=== PATIENT | female | born 1995 | race African-American/Black ===

== ENCOUNTER 2021-03-15 02:25 | Emergency (ER) | payer SELFPAY ==
[2021-03-15] MEDS ORDERED: Ketorolac Tromethamine 30 MG/ML VIAL ONE (03:16)
== END 2021-03-15 03:22 | disposition home or self-care (01) ==
LOC: CSHERS 02:25
DX: F41.9 Anxiety disorder, unspecified (principal); R07.89 Other chest pain
CPT/HCPCS: 71045; 93005; 96372; J1885

== ENCOUNTER 2021-07-02 14:07 | Emergency (ER) | payer SELFPAY ==
[2021-07-02] MEDS ORDERED: predniSONE 20 MG TAB ONE (14:35)
== END 2021-07-02 16:09 | disposition home or self-care (01) ==
LOC: CSHERS 14:07
DX: J45.909 Unspecified asthma, uncomplicated (principal); G43.909 Migraine, unspecified, not intractable, without status migrainosus
CPT/HCPCS: 71045; J7512; J7620

== ENCOUNTER 2021-08-07 13:25 | Emergency (ER) | payer SELFPAY ==
[2021-08-08 16:45] LABS: SARS-CoV-2 PCR by NAA DETECTED (NotDetected)
== END 2021-08-07 16:18 | disposition home or self-care (01) ==
LOC: CSHERS 13:25
DX: U07.1 COVID-19 (principal); G43.909 Migraine, unspecified, not intractable, without status migrainosus
CPT/HCPCS: 71046; 87804; U0003; U0005

== ENCOUNTER 2021-08-12 00:29 | Emergency (ER) | payer SELFPAY ==
[2021-08-12] MEDS ORDERED: Ondansetron ODT 4 MG TAB ONE (02:35)
== END 2021-08-12 03:10 | disposition home or self-care (01) ==
LOC: CSHERS 00:29
DX: U07.1 COVID-19 (principal); R07.89 Other chest pain; J45.909 Unspecified asthma, uncomplicated; G43.909 Migraine, unspecified, not intractable, without status migrainosus
CPT/HCPCS: 71045; Q0162

== ENCOUNTER 2022-03-31 17:13 | Emergency (ER) | payer SELFPAY, OTHER | END 2022-03-31 17:56 | disposition home or self-care (01) | LOC: CSHERS 17:13 | DX: J02.9 Acute pharyngitis, unspecified (principal) | CPT/HCPCS: 99284 ==

== ENCOUNTER 2022-04-08 01:56 | Emergency (ER) | payer OTHER, SELFPAY ==
[2022-04-08] MEDS ORDERED: Oxymetazoline HCl 0.05% ( 15 ML ) ONE (03:02)
== END 2022-04-08 04:32 | disposition home or self-care (01) ==
LOC: CSHERS 01:56
DX: J20.9 Acute bronchitis, unspecified (principal); R09.81 Nasal congestion
CPT/HCPCS: 71045; 94640; J7620

== ENCOUNTER 2022-04-12 13:27 | Emergency (ER) | payer SELFPAY ==
[2022-04-12 14:18] LABS: Bilirubin Neg (Negative); Blood, Urine 10 (Negative); Clarity Slightly Cloudy (Clear); Glucose, Urine (Dipstick) Normal (Negative); Ketone, Urine Negative (Negative); Leukocyte 500 (Negative); Nitrite Negative (Negative); Protein, Urine (Dipstick) 15 mg/dl (Neg-Trace); Urobilinogen Normal mg/dL (Less than 2)
[2022-04-12 14:19] LABS: Pregnancy Test - Urine (BHCG) Negative (Negative); Pregu Control Background? CLEAR/WHITE (CLR/WHITE); Pregu Control Bar Appear? YES (CONTROL BAR)
[2022-04-12 14:20] LABS: #Eosinphils 0.2 10x3/uL (0.0-0.5); #Monocytes 0.7 10x3/uL (0.0-1.1); #Neutrophils 5.2 10x3/uL (1.5-8.4); %Basophils 0.3 % (0.0-2.0); %Eosinophils 2.3 % (0.0-6.0); %Lymphocytes 33.5 % (18.0-47.0); %Monocytes 7.2 % (0.0-10.0); %Neutrophils 56.4 % (40.0-75.0); Hemoglobin 9.3 g/dL (12.0-15.5); Mean Corpuscular HGB CONC 30.9 g/dL (32.0-36.0); Mean Corpuscular Hemoglobin 22.6 pg (27.0-33.0); Mean Corpuscular Volume 73.1 fl (81.6-98.3); Mean Platelet Volume 10.4 fl (7.4-10.4); Platelet Count 384 10x3/uL (150-450); Red Blood Cell (RBC) Count 4.12 10x6/uL (3.90-5.03); White Blood Cell (WBC) Count 9.2 10x3/uL (3.5-10.5)
[2022-04-12 14:34] LABS: Bacteria/HPF 2+ HPF (None Seen); RBC/HPF 0-3 HPF (0-3)
[2022-04-12 14:45] LABS: ALT (SGPT) 26 U/L (8-55); AST (SGOT) 23 U/L (5-34); Albumin 3.8 g/dL (3.5-5.0); Alkaline Phosphatase 84 U/L (40-110); Anion Gap 14 mmol/L (10-20); BUN (Urea Nitrogen) 10 mg/dL (7.0-18.7); Bilirubin, Total 0.2 mg/dL (0.2-1.2); Calc. Creatinine Clearance 0 mL/min (70-130); Calcium 8.8 mg/dL (7.8-10.44); Carbon Dioxide 21 mmol/L (22-29); Chloride 106 mmol/L (98-107); Estimated GFR 82; Globulin 4.4 g/dL (2.4-3.5); Glucose 100 mg/dL (70-105); Lipase 66 U/L (8-78); Potassium 3.9 mmol/L (3.5-5.1); Protein, Total 8.2 g/dL (6.0-8.3); Sodium 137 mmol/L (136-145)
== END 2022-04-12 15:25 | disposition home or self-care (01) ==
LOC: CSHERS 13:27
DX: N39.0 Urinary tract infection, site not specified (principal)
CPT/HCPCS: 36415; 80053; 81003; 81015; 81025; 83690; 85025; 87086; 99284

== ENCOUNTER 2022-06-23 08:01 | Emergency (ER) | payer SELFPAY ==
[2022-06-23] MEDS ORDERED: Ketorolac Tromethamine 30 MG/ML VIAL ONE (08:59)
[2022-06-23 09:20] LABS: SARS-CoV-2 NAA Rapid Test DETECTED (NotDetected)
== END 2022-06-23 09:17 | disposition home or self-care (01) ==
LOC: CSHERS 08:01
DX: U07.1 COVID-19 (principal)
CPT/HCPCS: 96372; 99283; J1885

== ENCOUNTER 2022-06-30 22:34 | Emergency (ER) | payer SELFPAY | END 2022-06-30 23:33 | disposition home or self-care (01) | LOC: CSHERS 22:34 | DX: U07.1 COVID-19 (principal); J20.9 Acute bronchitis, unspecified | CPT/HCPCS: 99282 ==

== ENCOUNTER 2022-07-23 22:35 | Emergency (ER) | payer SELFPAY ==
[2022-07-23] MEDS ORDERED: Acetaminophen 500 MG TAB ONE (23:19)
[2022-07-23] MEDS ORDERED: Ibuprofen 200 MG TAB ONE (23:20)
== END 2022-07-23 23:28 | disposition home or self-care (01) ==
LOC: CSHERS 22:35
DX: B34.9 Viral infection, unspecified (principal); J45.909 Unspecified asthma, uncomplicated; G43.909 Migraine, unspecified, not intractable, without status migrainosus
CPT/HCPCS: 99283

== ENCOUNTER 2022-07-28 05:27 | Emergency (ER) | payer SELFPAY ==
[2022-07-28 06:05] LABS: #Eosinphils 0.1 10x3/uL (0.0-0.5); #Monocytes 0.6 10x3/uL (0.0-1.1); %Basophils 0.3 % (0.0-2.0); %Eosinophils 1.3 % (0.0-6.0); %Lymphocytes 32.3 % (18.0-47.0); %Monocytes 5.8 % (0.0-10.0); Hemoglobin 10.1 g/dL (12.0-15.5); Mean Corpuscular HGB CONC 32.5 g/dL (32.0-36.0); Mean Corpuscular Hemoglobin 24.2 pg (27.0-33.0); Mean Corpuscular Volume 74.4 fl (81.6-98.3); Mean Platelet Volume 10.1 fl (7.4-10.4); Platelet Count 384 10x3/uL (150-450); RBC Distribution Width 18.4 % (11.5-14.5); Red Blood Cell (RBC) Count 4.18 10x6/uL (3.90-5.03); White Blood Cell (WBC) Count 9.9 10x3/uL (3.5-10.5)
[2022-07-28 06:22] LABS: ALT (SGPT) 18 U/L (8-55); AST (SGOT) 17 U/L (5-34); Albumin 3.9 g/dL (3.5-5.0); Alkaline Phosphatase 87 U/L (40-110); Anion Gap 15 mmol/L (10-20); BUN (Urea Nitrogen) 12 mg/dL (7.0-18.7); Bilirubin, Total 0.2 mg/dL (0.2-1.2); Calc. Creatinine Clearance 0 mL/min (70-130); Calcium 9.3 mg/dL (7.8-10.44); Carbon Dioxide 20 mmol/L (22-29); Chloride 107 mmol/L (98-107); Estimated GFR 95; Globulin 4.6 g/dL (2.4-3.5); Glucose 98 mg/dL (70-105); Potassium 3.7 mmol/L (3.5-5.1); Protein, Total 8.5 g/dL (6.0-8.3); Sodium 138 mmol/L (136-145)
[2022-07-28 06:32] LABS: BHCG - Serum Negative (NEGATIVE); Pregs Control Background? CLEAR/WHITE (CLR/WHITE); Pregs Control Bar Appear? YES (CONTROL BAR)
== END 2022-07-28 06:50 | disposition home or self-care (01) ==
LOC: CSHERS 05:27
DX: R42 Dizziness and giddiness (principal); I10 Essential (primary) hypertension; N93.9 Abnormal uterine and vaginal bleeding, unspecified; D64.9 Anemia, unspecified
CPT/HCPCS: 80053; 84703; 85025; 93005

== ENCOUNTER 2022-11-09 07:12 | Emergency (ER) | payer BC, SELFPAY ==
[2022-11-09 07:59] LABS: Bilirubin Neg (Negative); Blood, Urine 10 (Negative); Clarity Cloudy (Clear); Glucose, Urine (Dipstick) Normal (Negative); Ketone, Urine Negative (Negative); Leukocyte 500 (Negative); Nitrite Negative (Negative); Protein, Urine (Dipstick) 15 mg/dl (Neg-Trace); Urobilinogen Normal mg/dL (Less than 2)
[2022-11-09 08:01] LABS: Pregnancy Test - Urine (BHCG) Negative (Negative); Pregu Control Background? CLEAR/WHITE (CLR/WHITE); Pregu Control Bar Appear? YES (CONTROL BAR)
[2022-11-09 08:06] LABS: #Basophils 0.1 10x3/uL (0.0-0.2); #Eosinphils 0.2 10x3/uL (0.0-0.5); #Monocytes 0.4 10x3/uL (0.0-1.1); %Basophils 0.6 % (0.0-2.0); %Eosinophils 2.5 % (0.0-6.0); %Lymphocytes 29.8 % (18.0-47.0); %Monocytes 5.3 % (0.0-10.0); %Neutrophils 61.6 % (40.0-75.0); Hemoglobin 9.1 g/dL (12.0-15.5); Mean Corpuscular HGB CONC 31.2 g/dL (32.0-36.0); Mean Corpuscular Hemoglobin 23.5 pg (27.0-33.0); Mean Corpuscular Volume 75.3 fl (81.6-98.3); Mean Platelet Volume 10.4 fl (7.4-10.4); Platelet Count 378 10x3/uL (150-450); RBC Distribution Width 16.3 % (11.5-14.5); Red Blood Cell (RBC) Count 3.88 10x6/uL (3.90-5.03); White Blood Cell (WBC) Count 8.1 10x3/uL (3.5-10.5)
[2022-11-09 08:28] LABS: Anion Gap 16 mmol/L (10-20); BUN (Urea Nitrogen) 13 mg/dL (7.0-18.7); Calc. Creatinine Clearance 0 mL/min (70-130); Calcium 8.9 mg/dL (7.8-10.44); Carbon Dioxide 19 mmol/L (22-29); Chloride 107 mmol/L (98-107); Estimated GFR 96; Glucose 94 mg/dL (70-105); Magnesium 1.8 mg/dL (1.6-2.6); Potassium 3.9 mmol/L (3.5-5.1); Sodium 138 mmol/L (136-145)
[2022-11-09 08:37] LABS: Squamous Epithelial 21-50 HPF (0-3)
[2022-11-09 08:38] LABS: Bacteria/HPF 2+ HPF (None Seen); Trichomonas/HPF 1+ HPF (None Seen)
== END 2022-11-09 10:10 | disposition home or self-care (01) ==
LOC: CSHERS 07:12
DX: N39.0 Urinary tract infection, site not specified (principal); A59.9 Trichomoniasis, unspecified
CPT/HCPCS: 74176; 80048; 81003; 81015; 81025; 83735; 85025; 87086; 96372

== ENCOUNTER 2022-11-28 14:31 | Emergency (ER) | payer BC ==
[2022-11-28 15:42] LABS: Bilirubin Neg (Negative); Blood, Urine 10 (Negative); Clarity Clear (Clear); Glucose, Urine (Dipstick) Normal (Negative); Ketone, Urine Negative (Negative); Leukocyte 100 (Negative); Nitrite Negative (Negative); Protein, Urine (Dipstick) Negative (Neg-Trace); Urobilinogen Normal mg/dL (Less than 2)
[2022-11-28 15:59] LABS: RBC/HPF 0-3 HPF (0-3)
[2022-11-28 16:00] LABS: Bacteria/HPF Rare-Few HPF (None Seen)
[2022-11-28] MEDS ORDERED: metroNIDAZOLE 500 MG TAB ONE (16:22)
== END 2022-11-28 16:37 | disposition home or self-care (01) ==
LOC: CSHERS 14:31
DX: N39.0 Urinary tract infection, site not specified (principal)
CPT/HCPCS: 81003; 81015; 99283

== ENCOUNTER 2023-07-06 11:49 | Emergency (ER) | payer BC | END 2023-07-06 13:28 | disposition home or self-care (01) | LOC: CSHERS 11:49 | DX: L85.8 Other specified epidermal thickening (principal) | CPT/HCPCS: 99282 ==

== ENCOUNTER 2024-02-27 07:26 | Emergency (ER) | payer BC ==
[2024-02-27 08:05] LABS: Bilirubin Neg (Negative); Blood, Urine 150 (Negative); Clarity Slightly Cloudy (Clear); Glucose, Urine (Dipstick) Normal (Negative); Ketone, Urine Negative (Negative); Leukocyte 25 (Negative); Nitrite Negative (Negative); Protein, Urine (Dipstick) 15 mg/dl (Neg-Trace); Specific Gravity, Urine 1.015 (1.005-1.030); Urobilinogen Normal mg/dL (Less than 2)
[2024-02-27 08:08] LABS: Pregnancy Test - Urine (BHCG) POSITIVE (Negative); Pregu Control Background? CLEAR/WHITE (CLR/WHITE); Pregu Control Bar Appear? YES (CONTROL BAR); Specific Gravity 1.015 (1.002-1.036)
[2024-02-27 08:12] LABS: Bacteria/HPF 2+ HPF (None Seen); CAUTI Indications for Culture Pelvic or flank pain
[2024-02-27 08:13] LABS: Urine Culture Reflex No No
== END 2024-02-27 08:52 | disposition home or self-care (01) ==
LOC: CSHERS 07:26
DX: O23.40 Unspecified infection of urinary tract in pregnancy, unspecified trimester (principal); N39.0 Urinary tract infection, site not specified; Z3A.00 Weeks of gestation of pregnancy not specified
CPT/HCPCS: 81001; 81025; 99284

== ENCOUNTER 2025-03-10 02:09 | Emergency (ER) | payer OTHER, BC ==
[2025-03-10 02:52] LABS: Pregnancy Test - Urine (BHCG) Negative (Negative); Pregu Control Background? CLEAR/WHITE (CLR/WHITE); Pregu Control Bar Appear? YES (CONTROL BAR)
[2025-03-10] MEDS ORDERED: Acetaminophen 500 MG TAB ONE (02:56)
[2025-03-10 03:01] LABS: Glucose, Urine (Dipstick) Normal (Negative); Leukocyte 100 (Negative); Protein, Urine (Dipstick) 30 mg/dl (Neg-Trace); Specific Gravity, Urine 1.030 (1.005-1.030)
[2025-03-10 03:15] LABS: Bacteria/HPF 2+ HPF (None Seen); CAUTI Indications for Culture Pelvic or flank pain; RBC/HPF 0-3 HPF (0-3); WBC/HPF 0-3 HPF (0-3)
[2025-03-10 03:16] LABS: Urine Culture Reflex No No
== END 2025-03-10 04:12 | disposition home or self-care (01) ==
LOC: CSHERS 02:09
DX: M54.50 Low back pain, unspecified (principal); I10 Essential (primary) hypertension; E66.9 Obesity, unspecified
CPT/HCPCS: 81001; 81025; 87086; 99284; Q0162

== ENCOUNTER 2025-05-08 09:51 | Emergency (ER) | payer OTHER, BC ==
[2025-05-08 11:40] LABS: Glucose, Urine (Dipstick) Normal (Negative); Leukocyte Negative (Negative); Protein, Urine (Dipstick) Negative (Neg-Trace); Specific Gravity, Urine 1.015 (1.005-1.030)
[2025-05-08 11:41] LABS: Pregnancy Test - Urine (BHCG) Negative (Negative); Pregu Control Background? CLEAR/WHITE (CLR/WHITE); Pregu Control Bar Appear? YES (CONTROL BAR)
[2025-05-08 12:30] LABS: Bacteria/HPF 1+ HPF (None Seen); CAUTI Indications for Culture Pelvic or flank pain; RBC/HPF 0-3 HPF (0-3); WBC/HPF 0-3 HPF (0-3)
[2025-05-08 12:31] LABS: Urine Culture Reflex No No
== END 2025-05-08 11:48 | disposition home or self-care (01) ==
LOC: CSHERS 09:51
DX: I10 Essential (primary) hypertension (principal); G44.209 Tension-type headache, unspecified, not intractable; E66.01 Morbid (severe) obesity due to excess calories; R29.701 NIHSS score 1
CPT/HCPCS: 70450; 81001; 81025; 93005